=== PATIENT | female | born 1985 | race African-American/Black ===

== ENCOUNTER 2017-02-12 23:24 | Emergency (ER) | payer OTHER ==
[~2017-02-12 23:24] MED LIST: BENTYL10 MG PO; IBUPROFEN800 MG PO; NAPROSYN375 MG PO; PHENERGAN PO; PHENERGAN25 MG PO
[2017-02-13 01:55] LABS: BASOPHIL% 0.6 % (0-2.5); DIFF IND YES; EOSINOPHIL# 0.3 X10e3 (0-0.7); HEMATOCRIT 37.2 % (35.0-45.0); HEMOGLOBIN 11.9 gm/dL (12.0-16.0); LYMPHOCYTE# 3.1 X10e3 (1.0-3.5); LYMPHOCYTE% 54.6 % (17.0-45.0); MEAN CORPUSCULAR HEMOGLOBIN 28.1 PG (28-34); MEAN CORPUSCULAR HGB CONC 31.9 g/dL (30-36); MEAN PLATELET VOLUME 7.9 FL (6.5-11.5); MONOCYTE# 0.4 X10e3 (0-1.0); MONOCYTE% 7.5 % (3.0-12.0); NEUTROPHIL# 1.8 X10e3 (1.5-7.1); NEUTROPHIL% 31.3 % (40-75); PLATELET COUNT 246 X10e3 (140-420); RED BLOOD COUNT 4.23 X10e (3.90-5.30); RED CELL DISTRIBUTION WIDTH 13.5 % (11.0-15.5); WHITE BLOOD COUNT 5.8 X10e3 (4.0-10.5)
[2017-02-13 02:25] LABS: PLATELET ESTIMATE NORMAL (NORMAL); RBC NORMAL YES
== END 2017-02-13 02:55 | disposition home or self-care (01) ==
LOC: CED 23:24
PROVIDERS: Emergency Medicine
DX: N93.8 Other specified abnormal uterine and vaginal bleeding (principal)
CPT/HCPCS: 36415; 84703; 85025; 99283

== ENCOUNTER → 2017-02-15 | Outpatient (CLI) | payer OTHER ==
[~2017-02-15] MED LIST changes: +AMBIEN10 MG; +ANTIVERT; +DSS100 MG; +FERROUS SULFAT160 MG; +ORTHO-CYCLEN 281 EA; +XANAX0.5 M1
--- NOTE | ~2017-02-15 | US98 ---
[facility] A Service of [facility] / [facility] RADIOLOGY TEXT RESULTS PATIENT: TOAN DOMINGUEZ LOCATION: [place] : [birth year] UNIT #: [id number] AGE: [address]: SOLA VILLA SEX: F ORDER DR: [id number] [address] [id number] O MR#: [id number] Acc #: [id number] NAME: TOAN DOMINGUEZ : 1985 SEX: F STUDY DATE/TIME: 02/15/2017 13:32 UNIT: [facility] ROOM: STUDY DESCRIPTION: US Pelvic Non-OB Complete Attending Physician: Sola Villa Referring Physician: oSla Villa Ordering Physician: Physician Non-Staff Primary Care Physician: Sola Villa MEDICAL IMAGING REPORT This report is preliminary unless electronic signature is present. EXAM Transabdominal and transvaginal pelvic ultrasound 02/15/2017 HISTORY Vaginal bleeding since 02/02/2017 with pelvic pain for 1 year. FINDINGS Transabdominal and transvaginal pelvic ultrasound was performed. Endovaginal ultrasound was performed for attempted better visualization of the adnexal structures. The bladder is normal in appearance. Uterus measures 9.9 cm craniocaudal x 3.6 cm AP x 6 cm transverse. Endometrial stripe measures 7 mm. The ovaries were not identified on either transabdominal or transvaginal portions of the examination. No adnexal mass was seen. There is no free fluid in the pelvis. IMPRESSION 1. Exam is limited as the ovaries were not identified on either transabdominal or transvaginal portions of the examination. No adnexal mass was seen and there is no free fluid in the pelvis. 2. Normal uterus. Dictated by... Hilario Rojas M.D. THIS IS AN ELECTRONICALLY VERIFIED REPORT Hilario Rojas M.D. at 02/16/2017 8:10 AM [facility] A Service [facility] RADIOLOGY TEXT RESULTS PATIENT: TOAN DOMINGUEZ LOCATION: [facility] : [birth year] UNIT #: [id number] AGE: [address]: SOLA VILLA SEX: F ORDER DR: TD: 02/15/2017 22:23 JOB #: [id number] MEDICAL IMAGING REPORT Page 1 of 1
== END | disposition home or self-care (01) ==
LOC: SGUS 12:57
DX: N93.8 Other specified abnormal uterine and vaginal bleeding (principal)
CPT/HCPCS: 76830; 76856

== ENCOUNTER 2017-03-04 09:10 | Emergency (ER) | payer OTHER ==
[~2017-03-04 09:10] MED LIST changes: -AMBIEN10 MG; -ANTIVERT; -DSS100 MG; -FERROUS SULFAT160 MG; -ORTHO-CYCLEN 281 EA; -XANAX0.5 M1
[2017-03-04] MEDS ORDERED: ORTHO-CYCLEN 281 EA (09:17)
[2017-03-04] MEDS ORDERED: DSS100 MG (09:17)
[2017-03-04] MEDS ORDERED: ANTIVERT (09:17)
[2017-03-04] MEDS ORDERED: FERROUS SULFAT160 MG (09:17)
[2017-03-04] MEDS ORDERED: AMBIEN10 MG (09:17)
[2017-03-04] MEDS ORDERED: XANAX0.5 M1 (09:17)
== END 2017-03-04 09:37 | disposition left against medical advice (07) ==
LOC: SED 09:10
DX: N93.9 Abnormal uterine and vaginal bleeding, unspecified (principal)
CPT/HCPCS: 99283